=== PATIENT | male | born 1940 | race African-American/Black ===

== ENCOUNTER → 2018-11-16 | Outpatient (CLI) | payer MEDICARE ==
[~2018-11-16] MED LIST: IOPAMIDOL 370 MG/ML 200 ML INFUS..BTL INJ ONE; SODIUM CHLORIDE 0.9% 100 ML 100 ML ONE
[2018-11-16 10:29] LABS: BLOOD UREA NITROGEN 14 mg/dL (7-26); BUN/CREATININE RATIO 15 (6-25); CREATININE, SERUM 0.96 mg/dL (0.72-1.25); EST GLOMERULAR FILTRATION RATE > 60 ML/MIN (60-)
--- NOTE | 2018-11-16 12:27 | Diagnostic Imaging Report ---
EXAMINATION: CT angiography of the abdomen, pelvis, and lower extremities with contrast TECHNIQUE: Spiral CT angiographic images of the abdomen and pelvis were performed from the lung bases to the feet after the intravenous administration of 100 cc Isovue-370. Coronal and sagittal reformatted images were obtained. For optimization of anatomic delineation, volume rendered reformatted images were generated on a stand-alone workstation under the direct supervision of the interpreting physician. COMPARISON: None. CLINICAL HISTORY:Peripheral vascular disease. DISCUSSION: Vasculature: The abdominal aorta is nonaneurysmal with mild calcified and noncalcified atherosclerotic plaque along its course. The celiac, SMA, single bilateral renal artery, and MEENU origins are patent without significant stenosis. Iliac arterial systems: Right: Calcified and noncalcified atherosclerotic plaque without significant stenosis of the common or external iliac artery. The internal iliac artery and proximal visceral branches are also widely patent. Left: Calcified and noncalcified atherosclerotic plaque without significant stenosis of the common or external iliac artery. The internal iliac artery and proximal visceral branches are widely patent. Femoral-popliteal segments: Right: The common femoral artery is patent. The femoral bifurcation is patent. The profunda femoris artery and proximal muscular branches are patent. The proximal SFA is patent. There is calcified and noncalcified atherosclerotic plaque resulting in short segment moderate stenosis of the distal SFA at the adductor hiatus (series 3 image 173). There is also a short segment moderate stenosis of the proximal popliteal artery seen on series 3 image 204. There is calcified and noncalcified atherosclerotic plaque along the distal popliteal artery, with moderate stenosis just above the trifurcation. Left: The common femoral artery is patent. The profunda femoris artery and proximal muscular branches are patent. Patent long segment SFA-proximal popliteal stent complex extending from the bifurcation to the level of the intercondylar notch of the femur. The distal popliteal artery is notable for moderate stenosis just above the trifurcation. Runoff: Right: The anterior tibial artery is occluded at its origin and reconstitutes at the level of the upper calf, with visualization of the continuation as the dorsalis pedis artery. The tibioperoneal trunk is patent but diffusely diseased. The peroneal artery is patent and provides collateral supply to the lateral plantar distribution. The posterior tibial tibial artery is patent proximally, though occludes at the level of the ankle joint. Left: The anterior tibial artery is occluded at its origin, with reconstitution of the dorsalis pedis artery via peroneal collaterals. The tibioperoneal trunk is patent but diffusely diseased. The posterior tibial artery is patent proximally though occludes at the level of the distal calf. The peroneal artery is patent to its distal continuation as collateral branches supplying the dorsalis pedis and lateral plantar distributions. ABDOMEN/PELVIS: LOWER THORAX:Linear and reticular opacities in the lower lobes left greater than right compatible with scar or subsegmental atelectasis. Calcified pleural plaque in the right lung base. HEPATOBILIARY: No focal hepatic lesions. No intra-or extrahepatic biliary ductal dilation. Multiple radiopaque calculi within the gallbladder. No wall thickening or adjacent inflammatory change. SPLEEN: No splenomegaly. PANCREAS: No focal masses or ductal dilatation. ADRENALS: No adrenal nodules. KIDNEYS/URETERS: No hydronephrosis, stones, or solid mass lesions. PELVIC ORGANS/BLADDER: The bladder is normal. PERITONEUM/RETROPERITONEUM: No free air or fluid. LYMPH NODES: No intra-abdominal, retroperitoneal, pelvic or inguinal lymphadenopathy. VESSELS: As above. Portal vein, splenic vein, and central superior mesenteric vein are patent. GI TRACT: The large bowel is notable for innumerable diverticula along the entirety of the colon, without wall thickening or inflammatory change. The appendix is normal. Small hiatal hernia. No small bowel dilatation to suggest obstruction. Diverticulum projects superiorly from the third portion of the duodenum. BONES AND SOFT TISSUE: Postsurgical changes related to transmetatarsal amputations of the left foot with associated disuse patchy osteopenia. No osseous destructive lesions. Multilevel degenerative disc changes of the lumbar spine associated facet joint hypertrophy. Postsurgical changes of the anterior abdominal wall and right inguinal region. Small fat-containing umbilical hernia. Small lipoma within right gluteus musculature. Heterogeneous calcifications within the bilateral popliteal and superficial femoral veins, with enlargement of the profunda femoris and saphenous veins right greater than left. IMPRESSION: Diffuse calcified and noncalcified atherosclerotic plaque of the visualized abdominal pelvic and lower extremity arterial systems. The abdominal aorta is nonaneurysmal without significant visceral branch vessel stenosis. No significant iliac inflow stenosis. Multifocal moderate stenosis of the distal right superficial femoral artery and popliteal artery as above. Patent long segment left superficial femoral artery-popliteal artery stents. Short segment moderate stenosis of the distal popliteal artery. Two-vessel runoff to the right foot supplied by the posterior tibial and peroneal arteries; single vessel runoff to the left foot supplied by the peroneal artery. 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 Nonvascular findings include post amputation changes of the left foot, extensive large bowel diverticulosis without evidence of diverticulitis. 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 Signed by: Dr. Riley Augustin M.D. on 11/16/2018 12:24 PM
== END ==
LOC: CT 09:39
PROVIDERS: ATTEND Thoracic Surgery (Cardiothoracic Vascular Surgery)
DX: I73.9 Peripheral vascular disease, unspecified (principal)
CPT/HCPCS: 36415; 75635; 82565; 84520; Q9967